=== PATIENT | female | born 1955 | race Caucasian/White ===

== ENCOUNTER 2017-09-05 15:36 | Emergency (ER) | payer BC ==
[~2017-09-05] VITALS: Ht 175.3 cm; Wt 78.0 kg
[2017-09-05 15:40] VITALS: BP 165/79; PULSE 93; RESP 16; TEMP 97.8; O2SAT 100
[2017-09-05] MEDS ORDERED: OMEP20TA93 PO (15:55)
[2017-09-05] MEDS ORDERED: VENL100T PO (15:55)
[2017-09-05] MEDS ORDERED: ONDANSETRON HCL 4 MG/2 ML VIAL IVP ONE (16:15)
[2017-09-05] MEDS ORDERED: SODIUM CHLORIDE 0.9% FLUSH 10 ML FLUSH IVF PRN (16:15)
[2017-09-05] MEDS ORDERED: HYDROmorphone HCL PF 1 MG/ML VIAL IVS ONE (16:15)
--- NOTE | 2017-09-05 16:16 | PD ---
HPI Chief Complaint: Headache Time Seen by Provider: 16:05 Travel History International Travel<30 days: No Contact w/Intl Traveler<30days: No Traveled to known affect area: No History of Present Illness HPI c/o generalized headaches, 04/09, nonradiating. patient has no alleviating / aggravating factors, currently patient denies assoc factors of fever/neck pain/ cp/abd pain/back pain/ but patient does have some nausea PFSH Past Medical History Hx Anticoagulant Therapy: No Depression: Yes Diabetes: No GERD: Yes Thyroid Disease: Yes Influenza Vaccination: No ?: Not Past Surgical History Cholecystectomy: Yes Endocrine Surgery: Yes (PARTIAL THYROIDECTOMY) Hysterectomy: Yes Tonsillectomy: Yes Social History Alcohol Use: Yes (OCCAS) Tobacco Use: No Substance Use: No Allergies-Medications (Allergen,Severity, Reaction): Coded Allergies: Cephalosporins (Verified Allergy, Severe, 09/05/17) atorvastatin (Verified Allergy, Severe, 09/05/17) doxycycline (Verified Allergy, Severe, 09/05/17) rosuvastatin (Verified Allergy, Severe, 09/05/17) simvastatin (Verified Allergy, Severe, 09/05/17) valacyclovir (Verified Allergy, Severe, 09/05/17) Reported Meds & Prescriptions Reported Meds & Active Scripts Active Reported Omeprazole 20 Mg Tab 20 Mg PO DAILY PRN Effexor (Venlafaxine HCl) 100 Mg Tab 150 Mg PO HS Review of Systems Except as stated in HPI: all other systems reviewed are Neg General / Constitutional: No: Fever Eyes: No: Visual changes HENT: Positive: Headaches Cardiovascular: No: Chest Pain or Discomfort Respiratory: No: Shortness of Breath Gastrointestinal: Positive: Nausea, No: Abdominal Pain Genitourinary: No: Dysuria Musculoskeletal: No: Pain Skin: No Rash Neurologic: No: Weakness Psychiatric: No: Depression Endocrine: No: Polydipsia Hematologic/Lymphatic: No: Easy Bruising Physical Exam Narrative GENERAL: SKIN: Warm and dry. HEAD: Atraumatic. Normocephalic. EYES: Pupils equal and round. No scleral icterus. No injection or drainage. ENT: No nasal bleeding or discharge. Mucous membranes pink and moist. NECK: Trachea midline. No JVD. CARDIOVASCULAR: Regular rate and rhythm. RESPIRATORY: No accessory muscle use. Clear to auscultation. Breath sounds equal bilaterally. GASTROINTESTINAL: Abdomen soft, non-tender, nondistended. MUSCULOSKELETAL: Extremities without clubbing, cyanosis, or edema. No obvious deformities. NEUROLOGICAL: Awake and alert. No obvious cranial nerve deficits. Motor grossly within normal limits. Five out of 5 muscle strength in the arms and legs. Normal speech. PSYCHIATRIC: Appropriate mood and affect; insight and judgment normal. Data Data Last Documented VS Vital Signs Date Time Temp Pulse Resp B/P (MAP) Pulse Ox O2 Delivery O2 Flow Rate FiO2 09/05/17 16:49 16 09/05/17 16:30 80 145/86 (105) 99 Room Air 09/05/17 15:[address] Brain W/O Iv Contrast(Rout) (09/05/17 16:12) Iv Access Insert/Monitor (09/05/17 16:12) Sodium Chloride 0.9% Flush (Ns Flush) (09/05/17 16:15) Ondansetron Inj (Zofran Inj) (09/05/17 16:15) Hydromorphone Pf Inj (Dilaudid Pf Inj) (09/05/17 16:15) Ketorolac Inj (Toradol Inj) (09/05/17 17:15) MDM Medical Decision Making Medical Screen Exam Complete: Yes Emergency Medical Condition: Yes Medical Record Reviewed: Yes Differential Diagnosis ich v brain mass v tension raya v migraine raya Narrative Course ct neg for ich, brain mass or sinus dz....patient's headache is much improved and nausea is gone as well Diagnosis Primary Impression: headache Patient Instructions: General Instructions, Tension Headache (ED) Scripts Gitpaxinnj-Vcjkubzpeuptm-Wmdywamj (Fioricet) 50-300-40 Mg Cap 1-2 CAP PO Q6H Y for HEADACHE, #15 CAP 0 Refills Prov: Jeffery Pitt MD 09/05/17 Cyclobenzaprine (Flexeril) 10 Mg Tab 10 MG PO TID for Muscle Spasm for 7 Days, #21 TAB 0 Refills Prov: Jeffery Pitt MD 09/05/17 Disposition: 01 DISCHARGE HOME Condition: Stable Jeffery Pitt MD Sep 05, 2017 16:16
[2017-09-05 16:30] VITALS: BP 145/86; PULSE 80; RESP 18; O2SAT 99
--- NOTE | 2017-09-05 16:55 | RADRPT ---
EXAM DATE/TIME: 09/05/2017 16:17 [facility] COMPARISON: No previous studies available for comparison. INDICATIONS : Cephalgia with vomiting. RADIATION DOSE: 60.37 CTDIvol (mGy) MEDICAL HISTORY : None SURGICAL HISTORY : None. ENCOUNTER: Initial ACUITY: 1 day PAIN SCALE: 8/10 LOCATION: cranial TECHNIQUE: Multiple contiguous axial images were obtained of the head. Using automated exposure control and adj ustment of the mA and/or kV according to patient size, radiation dose was kept as low as reasonably a chievable to obtain optimal diagnostic quality images. DICOM format image data is available electro nically for review and comparison. 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 Ventricles otherwise appear normal. No evidence of midline shift, mass lesion, hemorrhage or acute infarction. No extra-axial fluid collections are seen. POSTERIOR FOSSA: The cerebellum and brainstem are intact. The 4th ventricle is midline. The cerebellopontine angle i s unremarkable. EXTRACRANIAL: The visualized portion of the orbits is intact. SKULL: The calvaria is intact. No evidence of skull fracture. CONCLUSION: 1. No evidence of acute infarct, hemorrhage, mass or edema. 2. Cavum septum callosum Ranjan Florez MD on September 05, 2017 at 16:53 Board Certified Radiologist. This report was verified electronically.
[2017-09-05] MEDS ORDERED: KETOROLAC TROMETHAMINE 30 MG/ML (IVP) VIAL IV PUSH ONE (17:15)
[2017-09-05] MEDS ORDERED: CYCL10TA PO (17:31)
[2017-09-05] MEDS ORDERED: BUTA1CAP PO (17:31)
[2017-09-05] MEDS ORDERED: ZOFR4TAB3 SL (17:35)
[2017-09-05] MEDS ORDERED: METOCLOPRAMIDE HCL 10 MG/2 ML VIAL IV PUSH ONE (18:00)
[2017-09-05 18:26] VITALS: BP 146/87; PULSE 70; RESP 18; O2SAT 98
== END 2017-09-05 18:33 | disposition home or self-care (01) ==
LOC: PHED 15:36
DX: R51 Headache (principal); R11.0 Nausea
CPT/HCPCS: 70450; 96374; 96375; 99285; J1170; J1885; J2405; J2765